=== PATIENT | male | born 1970 | race Caucasian/White ===

== ENCOUNTER 2016-12-02 06:28 | Day surgery (SDC) | payer OTHER ==
[2016-11-26 17:18] VITALS: BMI 36.6
[~2016-12-02 06:28] MED LIST: BUPIVACAINE HCL/PF 0.25% (2.5MG/ML) 10 ML VIAL IJ ONE; LIDOCAINE HCL 1%, 10 MG/ML (20ML VIAL) IJ ONE; methylPREDNISolone ACET (DEPO) 80 MG/1 ML VIAL IM ONE
[2016-12-02 06:44] VITALS: TEMP 98
[2016-12-02] MEDS ORDERED: LIDOCAINE HCL 1%, 10 MG/ML (20ML VIAL) ONE (07:15)
[2016-12-02] MEDS ORDERED: methylPREDNISolone ACET (DEPO) 80 MG/1 ML VIAL ONE (07:15)
[2016-12-02] MEDS ORDERED: BUPIVACAINE HCL/PF 0.25% (2.5MG/ML) 10 ML VIAL ONE (07:15)
[2016-12-02] MEDS ORDERED: PROPOFOL 20 ML ONE (08:18)
[2016-12-02] MEDS ORDERED: BUPIVACAINE HCL/PF 0.25% (2.5MG/ML) 10 ML VIAL IJ ONE (08:23)
[2016-12-02] MEDS ORDERED: LIDOCAINE HCL 1%, 10 MG/ML (20ML VIAL) IJ ONE (08:23)
[2016-12-02] MEDS ORDERED: methylPREDNISolone ACET (DEPO) 80 MG/1 ML VIAL IM ONE (08:23)
--- NOTE | 2016-12-02 09:08 | OP ---
DATE OF OPERATION: 12/02/2016 PREOPERATIVE DIAGNOSIS: Chronic lumbar radiculopathy with recent exacerbation. POSTOPERATIVE DIAGNOSIS: Chronic lumbar radiculopathy with recent exacerbation. PROCEDURE PERFORMED: 1. Right L5-S1 epidural steroid injection. 2. Intraoperative fluoroscopy. SURGEON: Brandon Pierson MD ANESTHESIA: Local with IV sedation. ANESTHESIOLOGIST: Sujata Wallace MD INDICATIONS: The patient is a 46-year-old male with history of lumbar fusion from L3 to S1, who complains of recurrent right lower extremity radiculopathy. Because of intractable symptoms and failure of conservative treatment, here is here for the first epidural steroid injection of the year. CONSENT: The risks of the proceed include but are not limited to bleeding, infection, spinal headache and neurological injury. The patient understands the indications for the procedure, the procedure in detail, the risks and benefits, and alternative treatments for his lumbar condition, and wishes to proceed. No guarantees were given for a favorable outcome. DESCRIPTION OF PROCEDURE: After the patient was taken to the operating room, he was placed in the prone position with a pillow under his hips. The lumbar region was cleaned with alcohol and prepped with Betadine. A skin wheal was raised with 5 mL of 1% Xylocaine. A 22-gauge spinal needle was inserted under AP and lateral fluoroscopic guidance from a right-sided approach at L5-S1. The needle was marched medially from the lateral aspect of the bone edges medially towards the spinal canal. Vxyu-me-omuaftiqti technique was utilized, and there was no CSF or blood backflow. Depo-Medrol 80 mg and 1% Xylocaine 3 mL were injected. The needle was withdrawn. A sterile bandage was applied. This was done under fluoroscopic imaging at all times. The patient tolerated the procedure well. He was turned back to a supine position, moving bilateral lower extremities well. He did not complain of a headache. He was moving bilateral lower extremities as he did prior to the procedure. BRANDON PIERSON M.D. [id number]
[2016-12-02 11:52] VITALS: BP 130/70; PULSE 80
== END 2016-12-02 09:50 | disposition home or self-care (01) ==
LOC: JASU-SURG 06:28
PROVIDERS: ATTEND Neurological Surgery
PROC: 3E0S33Z Introduction of Anti-inflammatory into Epidural Space, Percutaneous Approach (ICD-10-PCS; 2016-12-02)
PROC: 3E0S3BZ Introduction of Anesthetic Agent into Epidural Space, Percutaneous Approach (ICD-10-PCS; principal; 2016-12-02 07:30)
DX: M54.16 Radiculopathy, lumbar region (principal)
CPT/HCPCS: 76000-TC